=== PATIENT | female | born 1975 | race American Indian/Alaskan Native ===

== ENCOUNTER 2021-08-01 19:16 | Emergency (ER) | payer BC ==
--- NOTE | 2021-08-01 20:58 | XRay Report ---
RIGHT KNEE 3 VIEWS INDICATION / CLINICAL INFORMATION: Right knee pain and swelling for one week. History of ACL repair x2. COMPARISON: None available. FINDINGS: BONES and JOINT(S): No acute fracture or subluxation. Expected ACL reconstructive changes are noted w ith mild tricompartmental osteoarthritis and chondrocalcinosis. SOFT TISSUES: No significant abnormality. ADDITIONAL FINDINGS: None. IMPRESSION: 1. No acute findings. 2. Additional findings as above. Signer Name: Derrell Clancy MD Signed: 08/01/2021 8:53 PM Workstation Name: [id number]
[2021-08-01 22:33] VITALS: BP 149/68
--- NOTE | 2021-08-01 22:41 | Emergency Department Report ---
ED General Adult HPI - General Chief complaint: Pain General Stated complaint: KNEE PAIN/SWELLING Time Seen by Provider: 08/01/21 21:14 Source: patient Mode of arrival: Ambulatory Limitations: No Limitations, Physical Limitation - History of Present Illness Initial comments: 45-year-old -[place] female patient presents with complaints of right k nee pain x1 week. She denies any injury and states the pain began 1 day while walking. She has had history of 2 ACL repairs on her right knee. She also denies any swelling, color changes, fever/chills/sweats or history of cancer. Patient is using ibuprofen without relief. Pain occurs only with walking and bending the knee. No recent long travel, history of DVT/PEs, shortness of breath/cough, or hormone use per patient. As her current pain is 8/10 in severity. Severity scale (0 -10): 9 - Related Data Previous Rx's Medication Instructions Recorded Last Taken Type Naproxen 500 mg PO BID PRN #20 tablet 08/01/21 Unknown Rx ED Review of Systems ROS: Stated complaint: KNEE PAIN/SWELLING Other details as noted in HPI Constitutional: fever. denies: diaphoresis, malaise Musculoskeletal: arthralgia. denies: joint swelling Skin: as per HPI Neurological: abnormal gait. denies: numbness, paresthesias ED Past Medical Hx - Past Medical History Previous Medical History?: No - Surgical History Past Surgical History?: Yes Additional Surgical History: knee surgery - Medications Home Medications: Home Medications Medication Instructions Recorded Confirmed Last Taken Type Naproxen 500 mg PO BID PRN #20 tablet 08/01/21 Unknown Rx ED Physical Exam - General Limitations: No Limitations, Physical Limitation General appearance: alert, in no apparent distress - Head Head exam: Present: atraumatic, normocephalic - Eye Eye exam: Present: normal appearance. Absent: scleral icterus - Respiratory Respiratory exam: Absent: respiratory distress - Cardiovascular Cardiovascular Exam: Present: regular rate - Extremities Exam Extremities exam: Absent: calf tenderness - Expanded Lower Extremity Exam Right Upper Leg exam: Present: normal inspection Knee exam: Present: full ROM, tenderness (Tenderness palpation noted to lateral joint line without swelling, erythema, or obvious deformity), full knee extension. Absent: abrasion, laceration, ecchymosis, deformity, effusion Lower Leg exam: Present: normal inspection Ankle exam: Present: normal inspection Neuro vascular tendon exam: Present: no vascular compromise Gait: Positive: antalgic - Neurological Exam Neurological exam: Present: alert, oriented X3 - Psychiatric Psychiatric exam: Present: normal affect, normal mood - Skin Skin exam: Present: warm, dry, intact, normal color. Absent: rash ED Course Vital Signs 08/01/21 20:12 Temperature 98.5 F Pulse Rate 66 Respiratory 16 Rate Blood Pressure 149/68 O2 Sat by Pulse 100 Oximetry ED Medical Decision Making - Radiology Data Radiology results: report reviewed RIGHT KNEE 3 VIEWS INDICATION / CLINICAL INFORMATION: Right knee pain and swelling for one week. History of ACL repair x2. COMPARISON: None available. FINDINGS: BONES and JOINT(S): No acute fracture or subluxation. Expected ACL reconstructive changes are noted with mild tricompartmental osteoarthritis and chondrocalcinosis. SOFT TISSUES: No significant abnormality. ADDITIONAL FINDINGS: None. IMPRESSION: 1. No acute findings. 2. Additional findings as above. - Medical Decision Making 45-year-old -[place] female patient presents with complaints of right knee pain x1 week. She denies any injury and states the pain began 1 day while walking. She has had history of 2 ACL repairs on her right knee. She also denies any swelling, color changes, fever/chills/sweats or history of cancer. Patient is using ibuprofen without relief. Pain occurs only with walking and bending the knee. No recent long travel, history of DVT/PEs, shortness of breath/cough, or hormone use per patient. As her current pain is 8/10 in sev erity. X-rays negative for any acute changes but shows tricompartmental arthritic changes and chondrocalcinosis. 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 Patient provided with knee brace, she declines crutches. She is to DC ibuprofen and start naproxen as needed for pain along with icing. Discussed signs symptoms that should prompt immediate return to the ED, patient verbalizes understanding. Critical care attestation.: If time is entered above; I have spent that time in minutes in the direct care of this critically ill patient, excluding procedure time. ED Disposition Clinical Impression: Right knee pain Disposition: HOME / SELF CARE / HOMELESS Is pt being admited?: No Condition: Stable Instructions: Acute Knee Pain, Adult Additional Instructions: Please ice your knee 10 to 15 minutes at a time 3 times a day. Follow-up with your orthopedic doctor as scheduled on 08/03/2021. Prescriptions: Naproxen 500 mg PO BID PRN #20 tablet PRN Reason: pain
== END 2021-08-01 22:59 | disposition home or self-care (01) ==
LOC: ED 19:16
DX: M25.561 Pain in right knee (principal)
CPT/HCPCS: 29530; 99283